=== PATIENT | male | born 1975 | race Caucasian/White ===

== ENCOUNTER 2019-07-02 18:45 | Outpatient (REF) | payer OTHER, SELFPAY ==
[2019-07-02 20:20] LABS: Anion Gap 8.5 mmol/L (3-11); BUN 11 mg/dL (7-18); CO2 27.5 mmol/L (21.0-32.0); CREATININE 0.91 mg/dL (0.70-1.30); Calcium 8.9 mg/dL (8.5-10.1); Chloride 100 mmol/L (98-107); Glucose 107 mg/dL (74-106); Sodium 136 mmol/L (136-145)
== END 2019-07-02 19:05 ==
LOC: NCHCN 18:45
PROVIDERS: PCP Internal Medicine; Visit Provider Internal Medicine
DX: Z00.00 Encounter for general adult medical examination without abnormal findings (principal); I10 Essential (primary) hypertension
CPT/HCPCS: 80048

== ENCOUNTER 2020-07-14 18:27 | Outpatient (REF) | payer OTHER, SELFPAY ==
[2020-07-14 20:48] LABS: ALT 57 U/L (16-63); AST 28 U/L (15-37); Albumin 4.1 g/dL (3.4-5.0); Alkaline Phosphatase 56 U/L (46-116); Anion Gap 9.2 mmol/L (3-11); BUN 12 mg/dL (7-18); Bilirubin, Total 0.4 mg/dL (0.2-1.0); CO2 27.8 mmol/L (21.0-32.0); CREATININE 0.91 mg/dL (0.70-1.30); Chloride 99 mmol/L (98-107); Glucose 104 mg/dL (74-106); Potassium 3.9 mmol/L (3.5-5.1); Sodium 136 mmol/L (136-145)
== END 2020-07-14 18:47 ==
LOC: NCHCN 18:27
PROVIDERS: PCP Internal Medicine; Visit Provider Internal Medicine
DX: I10 Essential (primary) hypertension (principal); K76.0 Fatty (change of) liver, not elsewhere classified
CPT/HCPCS: 80053

== ENCOUNTER 2023-08-20 20:26 | Outpatient (REF) | payer BC, SELFPAY ==
[2023-08-20 20:49] LABS: Anion Gap 7.2 mmol/L (3-11); BUN 16 mg/dL (7-18); CO2 31.8 mmol/L (21.0-32.0); CREATININE 1.1 mg/dL (0.70-1.30); Calcium 9.1 mg/dL (8.5-10.1); Calculated LDL 125 mg/dL (<100); Chloride 95 mmol/L (98-107); Cholesterol 197 mg/dL (<200); Estimated GFR 81.78 (mL/min/1.73m2); Glucose 102 mg/dL (74-106); HDL Cholesterol 48 mg/dL (40-60); Potassium 3.9 mmol/L (3.5-5.1); Sodium 134 mmol/L (136-145); Triglyceride 122 mg/dL (<150)
== END 2023-08-20 20:27 | disposition home or self-care (01) ==
LOC: NCHCN 20:26
PROVIDERS: PCP Internal Medicine; Visit Provider Internal Medicine
DX: I10 Essential (primary) hypertension (principal)
CPT/HCPCS: 80048; 80061; 84443

== ENCOUNTER 2023-10-08 15:12 | Outpatient (REF) | payer BC, SELFPAY ==
[2023-10-08 19:27] LABS: D-Dimer 197 ng/mlFEU (<500)
== END 2023-10-08 15:13 | disposition home or self-care (01) ==
LOC: NCHCN 15:12
PROVIDERS: PCP Internal Medicine; Visit Provider Nurse Practitioner Family
DX: R06.09 Other forms of dyspnea (principal)
CPT/HCPCS: 85379

== ENCOUNTER 2024-08-25 15:06 | Outpatient (REF) | payer BC, SELFPAY ==
[2024-08-25 19:52] LABS: ALT 141 U/L (16-63); AST 54 U/L (15-37); Albumin 4.2 g/dL (3.4-5.0); Alkaline Phosphatase 105 U/L (46-116); Anion Gap 11.5 mmol/L (3-11); BUN 18 mg/dL (7-18); Bilirubin, Total 0.8 mg/dL (0.2-1.0); CO2 26.5 mmol/L (21.0-32.0); CREATININE 1.2 mg/dL (0.70-1.30); Calcium 9.9 mg/dL (8.5-10.1); Chloride 93 mmol/L (98-107); Cholesterol 261 mg/dL (<200); Estimated GFR 73.22 (mL/min/1.73m2); Glucose 468 mg/dL (74-106); HDL Cholesterol 40 mg/dL (>or=40); Potassium 4.3 mmol/L (3.5-5.1); Sodium 131 mmol/L (136-145); Total Protein 7.9 g/dL (6.4-8.2); Triglyceride 552 mg/dL (<150)
[2024-08-25 20:50] LABS: LDL CHOLESTEROL 126 mg/dL (<100)
[2024-08-26 10:24] LABS: Iron 118 ug/dL (65-175); Total Iron Binding Capacity 267 ug/dL (250-450); Transferrin Sat 44 % (20-55)
[2024-08-26 11:01] LABS: Ferritin > 2000 ng/mL (26-388)
[2024-08-27 18:20] LABS: C-Peptide 5.5 ng/mL (1.1 - 4.4)
[2024-09-03 12:14] LABS: Anti GAD65 Abs 0.02 nmol/L (<= 0.02); ZnT8 Antibodies <15.0 U/mL (<15.0)
== END 2024-08-25 15:07 | disposition home or self-care (01) ==
LOC: NCHCN 15:06
PROVIDERS: PCP Internal Medicine; Visit Provider Internal Medicine
DX: Z83.3 Family history of diabetes mellitus (principal)
CPT/HCPCS: 80053; 80061; 83721; 86337; 86341; 82728; 83540; 83550; 84443; 84681